=== PATIENT | female | born 1995 | race Two or more races ===

== ENCOUNTER 2019-03-05 12:48 | Emergency (ER) | payer MEDICAID ==
[~2019-03-05] VITALS: Ht 157.5 cm; Wt 63.5 kg
[2019-03-05 12:55] VITALS: BP 115/79
--- NOTE | 2019-03-05 13:00 | NUR ---
ED Nurse Note: walked in to ED due to left earache for last 2-3 days. denies any discharge or hearing loss. AAO x4. respirations even and non-labored noted. pt also c/o dry cough. will wait for the further order.
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
[2019-03-05] MEDS ORDERED: TYLENOL EXTRA500 MG ORAL (13:37)
[2019-03-05] MEDS ORDERED: OFLOXACIN5 ML OT (13:37)
--- NOTE | 2019-03-05 13:59 | NUR ---
ER DISCHARGE NOTE: Patient is cleared to be discharged per ERMD, pt is aox4, on room air, with stable vital signs. pt was given dc and prescription instructions, pt was able to verbalize understanding, pt id band removed . pt is able to ambulate with steady gait. pt took all belongings.
== END 2019-03-05 13:56 | disposition home or self-care (01) ==
LOC: EMR 13:20
DX: H60.502 Unspecified acute noninfective otitis externa, left ear (principal)
CPT/HCPCS: 99282